=== PATIENT | male | born 1980 | race Asian ===

== ENCOUNTER 2018-03-13 09:43 | Emergency (ER) | payer MEDICAID, OTHER ==
[~2018-03-13] VITALS: Ht 175.3 cm; Wt 65.9 kg
[2018-03-13 09:49] VITALS: BP 144/87
[2018-03-13] MEDS ORDERED: PERTUSS(ACELL),DIPH,TET VAC/PF 0.5 ML VIAL IM ONE (10:15)
== END 2018-03-13 10:48 | disposition left against medical advice (07) ==
LOC: EMS 09:43
DX: S01.81XA Laceration without foreign body of other part of head, initial encounter (principal); Z90.89 Acquired absence of other organs; W17.89XA Other fall from one level to another, initial encounter; Y93.39 Activity, other involving climbing, rappelling and jumping off; Y92.89 Other specified places as the place of occurrence of the external cause; Y99.8 Other external cause status
CPT/HCPCS: 99281

== ENCOUNTER 2020-11-29 12:53 | Emergency (ER) | payer MEDICAID, OTHER ==
[~2020-11-29] VITALS: Ht 167.6 cm; Wt 70.5 kg
[2020-11-29 14:19] LABS: COVID AG,FIA SOURCE NASOPHARYNGEAL
[2020-11-29 14:24] LABS: BASOPHILS % (AUTO) 0.4 % (0.0-2.0); EOSINOPHILS % (AUTO) 2.7 % (1.0-6.0); HEMATOCRIT 40.7 % (41-53); HEMOGLOBIN 13.2 g/dL (13.5-17.5); LYMPHOCYTES # (AUTO) 1.3 K/uL (1.0-4.8); LYMPHOCYTES % (AUTO) 17.4 % (22.0-44.0); MEAN CORPUSCULAR HEMOGLOBIN 29.5 pg (26.0-34.0); MEAN CORPUSCULAR HGB CONC 32.5 G/dL (31.0-37.0); MEAN CORPUSCULAR VOLUME 91 fL (80-100); MONOCYTES # (AUTO) 0.7 K/uL (0.1-1.0); NEUTROPHILS # (AUTO) 5.3 K/uL (1.8-7.7); NEUTROPHILS % (AUTO) 70.5 % (40.0-70.0); PLATELET COUNT (AUTO) 271 K/uL (150-450); RED BLOOD CELL COUNT(AUTO) 4.48 MIL/uL (4.50-5.90); RED CELL DISTRIBUTION WIDTH 13.7 % (11.5-14.5)
[2020-11-29 14:32] LABS: ANION GAP 2 mmol/L (8-16); CALCIUM, TOTAL 8.6 mg/dL (8.8-10.5); CARBON DIOXIDE 29 mmol/L (22-29); CHLORIDE 101 mmol/L (98-107); CREATININE 0.83 mg/dL (0.60-1.30); GLOMERULAR FILTR. RATE CALC > 60 mL/min (>60); GLUCOSE,RANDOM 103 mg/dL (70-110); POTASSIUM 3.8 mmol/L (3.5-5.1); SODIUM SERUM 132 mmol/L (136-145); UREA NITROGEN, BLOOD 20 mg/dL (7-18)
[2020-11-29 14:39] LABS: ALANINE AMINOTRANSFERASE 41 U/L (12-78); ALBUMIN 3.3 g/dL (3.4-5.0); ALKALINE PHOSPHATASE 147 U/L (46-116); ASPARTATE AMINOTRANSFERASE 28 U/L (15-37); BILIRUBIN,TOTAL 0.2 mg/dL (0.1-1.0); TOTAL PROTEIN, SERUM 7.4 g/dL (6.4-8.2)
[2020-11-29 16:21] VITALS: BP 117/80
== END 2020-11-29 16:46 | disposition home or self-care (01) ==
LOC: EMS 14:06
DX: F19.959 Other psychoactive substance use, unspecified with psychoactive substance-induced psychotic disorder, unspecified (principal); Z20.822 Contact with and (suspected) exposure to COVID-19
CPT/HCPCS: 36415; 80053; 85025; 87426; 99285; G0480

== ENCOUNTER 2020-12-10 21:03 | Emergency (ER) | payer MEDICAID ==
[~2020-12-10] VITALS: Ht 170.2 cm; Wt 63.0 kg
[2020-12-11 04:20] LABS: BASOPHILS % (AUTO) 0.4 % (0.0-2.0); EOSINOPHILS % (AUTO) 6.7 % (1.0-6.0); HEMATOCRIT 38.8 % (41-53); HEMOGLOBIN 12.9 g/dL (13.5-17.5); LYMPHOCYTES # (AUTO) 1.8 K/uL (1.0-4.8); LYMPHOCYTES % (AUTO) 16.3 % (22.0-44.0); MEAN CORPUSCULAR HEMOGLOBIN 29.6 pg (26.0-34.0); MEAN CORPUSCULAR HGB CONC 33.2 G/dL (31.0-37.0); MEAN CORPUSCULAR VOLUME 89 fL (80-100); MONOCYTES # (AUTO) 1.2 K/uL (0.1-1.0); MONOCYTES % (AUTO) 11.6 % (2.0-9.0); PLATELET COUNT (AUTO) 294 K/uL (150-450); RED BLOOD CELL COUNT(AUTO) 4.35 MIL/uL (4.50-5.90); RED CELL DISTRIBUTION WIDTH 13.2 % (11.5-14.5)
[2020-12-11 04:30] LABS: ANION GAP 9 mmol/L (8-16); CALCIUM, TOTAL 8.2 mg/dL (8.8-10.5); CARBON DIOXIDE 27 mmol/L (22-29); CHLORIDE 101 mmol/L (98-107); CREATININE 0.77 mg/dL (0.60-1.30); GLOMERULAR FILTR. RATE CALC > 60 mL/min (>60); GLUCOSE,RANDOM 93 mg/dL (70-110); POTASSIUM 3.2 mmol/L (3.5-5.1); SODIUM SERUM 137 mmol/L (136-145); UREA NITROGEN, BLOOD 9 mg/dL (7-18)
[2020-12-11 04:35] LABS: ALANINE AMINOTRANSFERASE 21 U/L (12-78); ALBUMIN 2.8 g/dL (3.4-5.0); ALKALINE PHOSPHATASE 124 U/L (46-116); ASPARTATE AMINOTRANSFERASE 16 U/L (15-37); BILIRUBIN,TOTAL 0.4 mg/dL (0.1-1.0); TOTAL PROTEIN, SERUM 7.2 g/dL (6.4-8.2)
[2020-12-11 05:03] LABS: COVID AG,FIA SOURCE NASOPHARYNGEAL
[2020-12-11] MEDS ORDERED: PIPERACILLIN/TAZO 3.375 GM/D5W 50 ML IV ONE (05:30)
[2020-12-11] MEDS ORDERED: POTASSIUM CHLORIDE 10% 40 MEQ/30 ML LIQUID UDCUP PO ONE (05:30)
[2020-12-11] MEDS ORDERED: KETOROLAC TROMETHAMINE 30 MG/ML VIAL IVP ONE (05:30)
[2020-12-11] MEDS ORDERED: POTASSIUM CHL 20 MEQ/D5-0.45NS 1,000 ML IV ONE (05:45)
[2020-12-11 06:13] VITALS: BP 123/79
== END 2020-12-11 08:40 | disposition short-term general hospital (02) ==
LOC: EMS 21:05
DX: T63.441A Toxic effect of venom of bees, accidental (unintentional), initial encounter (principal); S02.652A Fracture of angle of left mandible, initial encounter for closed fracture; F15.10 Other stimulant abuse, uncomplicated; Z20.822 Contact with and (suspected) exposure to COVID-19; Z59.0 Homelessness; Y04.0XXA Assault by unarmed brawl or fight, initial encounter; Y93.89 Activity, other specified; Y92.89 Other specified places as the place of occurrence of the external cause; Y99.8 Other external cause status
CPT/HCPCS: 36415; 70100; 80053; 85025; 87426; 96365; 96366; 96368; 96375; 99285; G0480; J1885; J2543; J3480; 96372; 96374

== ENCOUNTER 2020-12-29 19:36 | Emergency (ER) | payer MEDICAID | END 2020-12-29 19:45 | disposition left against medical advice (07) | LOC: EMS 19:38 | DX: H57.12 Ocular pain, left eye (principal); Z53.21 Procedure and treatment not carried out due to patient leaving prior to being seen by health care provider ==

== ENCOUNTER 2023-08-22 02:02 | Inpatient (IN) | payer MEDICAID ==
[~2023-08-22] VITALS: Ht 170.2 cm; Wt 68.0 kg
[2023-08-22 03:08] LABS: BASOPHILS % (AUTO) 0.1 % (0.0-2.0); EOSINOPHILS % (AUTO) 0.8 % (1.0-6.0); HEMATOCRIT 38.9 % (41-53); HEMOGLOBIN 13.1 g/dL (13.5-17.5); LYMPHOCYTES # (AUTO) 1.7 K/uL (1.0-4.8); LYMPHOCYTES % (AUTO) 8.6 % (22.0-44.0); MEAN CORPUSCULAR HEMOGLOBIN 30.1 pg (26.0-34.0); MEAN CORPUSCULAR HGB CONC 33.6 G/dL (31.0-37.0); MEAN CORPUSCULAR VOLUME 90 fL (80-100); MONOCYTES # (AUTO) 2.9 K/uL (0.1-1.0); MONOCYTES % (AUTO) 14.8 % (2.0-9.0); NEUTROPHILS # (AUTO) 14.6 K/uL (1.8-7.7); NEUTROPHILS % (AUTO) 75.7 % (40.0-70.0); PLATELET COUNT (AUTO) 351 K/uL (150-450); RED BLOOD CELL COUNT(AUTO) 4.33 MIL/uL (4.50-5.90); RED CELL DISTRIBUTION WIDTH 13.7 % (11.5-14.5); WHITE BLOOD COUNT (AUTO) 19.3 K/uL (4.5-11.0)
[2023-08-22] MEDS: SODIUM CHLORIDE 0.9% 1,950 ML IV ONE (03:09)
[2023-08-22] MEDS ORDERED: SODIUM CHLORIDE 0.9% 100 ML ONE (03:14)
[2023-08-22] MEDS ORDERED: IOHEXOL 350 MG/ML 100 ML VIAL ONE (03:14)
[2023-08-22 03:18] LABS: ANION GAP 6 mmol/L (8-16); CARBON DIOXIDE 28 mmol/L (22-29); CREATININE 0.97 mg/dL (0.60-1.30); GLUCOSE,RANDOM 140 mg/dL (70-110); UREA NITROGEN, BLOOD 21 mg/dL (7-18)
[2023-08-22 03:19] LABS: ALANINE AMINOTRANSFERASE 21 U/L (12-78); ALBUMIN 2.3 g/dL (3.4-5.0); ALKALINE PHOSPHATASE 143 U/L (46-116); ASPARTATE AMINOTRANSFERASE 27 U/L (15-37); BILIRUBIN,TOTAL 0.4 mg/dL (0.1-1.0); CALCIUM, TOTAL 8.7 mg/dL (8.8-10.5); CHLORIDE 91 mmol/L (98-107); GLOMERULAR FILTR. RATE CALC > 60 mL/min (>60); POTASSIUM 3.7 mmol/L (3.5-5.1); SODIUM SERUM 125 mmol/L (136-145); TOTAL PROTEIN, SERUM 7.5 g/dL (6.4-8.2)
[2023-08-22 03:21] LABS: LACTIC ACID 1.5 mmol/L (0.4-2.0)
[2023-08-22] MEDS: CEFTAROLINE 600 MG/D5W 250 ML IV ONE (03:56)
[2023-08-22 05:30] LABS: APPEARANCE,URINE CLEAR (CLEAR); BILIRUBIN,URINE NEGATIVE (NEGATIVE); COLOR,URINE YELLOW (YELLOW); GLUCOSE, URINE (UA) NEGATIVE (NEGATIVE); KETONES,URINE NEGATIVE (NEGATIVE); LEUKOCYTE ESTERASE ,URINE NEGATIVE (NEGATIVE); NITRATE,URINE NEGATIVE (NEGATIVE); OCCULT BLOOD,URINE TRACE (NEGATIVE); PH,URINE 5.5 (5.0-8.0); PH,URINE DRUG SCREEN 5.5 (5.0-8.0); PROTEIN,URINE 30-70 mg/dL (NEGATIVE); SPECIFIC GRAVITIY, URINE 1.021 (1.003-1.030)
[2023-08-22 05:36] LABS: AMPHET/METH SCREEN,URINE POSITIVE (NEGATIVE); BACTERIA,URINE None Seen /HPF (None Seen); BARBITURATE SCREEN, URINE NEGATIVE (NEGATIVE); BENZODIAZEPINES SCREEN,URINE NEGATIVE (NEGATIVE); CANNABINOID SCREEN,URINE POSITIVE (NEGATIVE); COCAINE SCREEN,URINE NEGATIVE (NEGATIVE); METHADONE SCREEN, URINE NEGATIVE (NEGATIVE); OPIATE SCREEN,URINE NEGATIVE (NEGATIVE); PHENCYCLIDINE SCREEN,URINE NEGATIVE (NEGATIVE); RBC,URINE 0-2 /HPF (0-2); SQUAMOUS EPITHELIAL CELL,UR Few /LPF (None Seen); WBC,URINE None Seen /HPF (0-5)
[2023-08-22 05:37] LABS: ALCOHOL, URINE DRUG SCREEN NEGATIVE (NEGATIVE)
[2023-08-22 05:59] LABS: C-REACTIVE PROTEIN QUANT 34.74 mg/dL (0.00-0.30)
[2023-08-22] MEDS ORDERED: SODIUM CHLORIDE 0.9% 1,000 ML ONE (11:02)
[2023-08-22 12:10] VITALS: BP 104/70; PULSE 90; RESP 18; TEMP 97
[2023-08-22 12:20] LABS: COVID AG,FIA SOURCE NASAL SWAB
[2023-08-22] MEDS: SODIUM CHLORIDE 0.9% 1,000 ML IV ONE (12:48)
[2023-08-22] MEDS: ETHYL ALCOHOL 62% ANTISEPTIC NASAL SANITIZER 0.6 ML AMPUL NASAL ONE (12:48)
[2023-08-22 12:50] LABS: SARS-COV2 (COVID) ANTIGEN,FIA Negative (Negative)
[2023-08-22] MEDS: CHLORHEXIDINE GLUCONATE 2% TOWELETTE [2'S/6'S] TP ONE (13:14)
[2023-08-22] MEDS ORDERED: HYDROCODONE/ACETAMINOPHEN 5-325 MG TABLET PO PRN (14:45)
[2023-08-22] MEDS ORDERED: BISACODYL 10 MG RECTAL RECTAL SUPPOSITORY PR PRN (14:45)
[2023-08-22] MEDS ORDERED: ONDANSETRON HCL 4 MG/2 ML VIAL IVP PRN (14:45)
[2023-08-22] MEDS ORDERED: MORPHINE SULFATE 2 MG/ML SYRINGE IVP PRN (14:45)
[2023-08-22] MEDS ORDERED: MAGNESIUM HYDROXIDE SUSPENSION 30 ML UDCUP PO PRN (14:45)
[2023-08-22] MEDS: 0.9% SODIUM CHLORIDE 1000 ML IRRIG SOLUTION BOTTLE IRRIG ONE (15:15)
[2023-08-22] MEDS ORDERED: ACETAMINOPHEN 1000 MG/ISO-OSM 100 ML IV ONE (15:41)
[2023-08-22] MEDS ORDERED: HEPARIN SODIUM,PORCINE 5,000 UNITS/ML VIAL SQ SCH (16:00)
[2023-08-22] MEDS: ACETAMINOPHEN 1000 MG/ISO-OSM 100 ML IV ONE (16:06)
[2023-08-22] MEDS: KETOROLAC TROMETHAMINE 30 MG/ML VIAL IVP ONE (16:06)
[2023-08-22] MEDS: HYDROmorphone HCL 2 MG/ML SYRINGE IVP ONE (16:14)
[2023-08-22] MEDS: VANCOMYCIN HCL 1.5 GM in DEXTROSE 5%-WATER 250 ML IV ONE (16:50)
[2023-08-22 17:10] VITALS: BP 121/80; PULSE 94; RESP 19; TEMP 98.7
[2023-08-22] MEDS: DOCUSATE SODIUM 100 MG CAPSULE PO SCH (20:05)
[2023-08-22] MEDS: FAMOTIDINE 20 MG TABLET PO SCH (20:05)
[2023-08-22 20:18] VITALS: BP 112/65; PULSE 88; RESP 18; TEMP 98.1
[2023-08-22] MEDS: VANCOMYCIN HCL 750 MG in DEXTROSE 5%-WATER 250 ML IV SCH (23:04)
[2023-08-23 03:26] VITALS: BP 126/64; PULSE 73; RESP 20; TEMP 98
[2023-08-23 04:08] VITALS: BP 116/71; PULSE 78; RESP 18; TEMP 97.6
[2023-08-23] MEDS ORDERED: CeFAZolin SODIUM 1 GM VIAL IVP ONE (06:51)
[2023-08-23] MEDS ORDERED: ONDANSETRON HCL 4 MG/2 ML VIAL IVP ONE (06:52)
[2023-08-23] MEDS ORDERED: LIDOCAINE/PF 2% 5 ML VIAL IM ONE (06:52)
[2023-08-23] MEDS ORDERED: PROPOFOL 1% 20 ML VIAL IVP ONE (06:53)
[2023-08-23] MEDS ORDERED: ROCURONIUM BROMIDE 10 MG/ML 5 ML VIAL IVP ONE (06:53)
[2023-08-23] MEDS ORDERED: SUGAMMADEX SODIUM 200 MG/2 ML VIAL IVP ONE (06:54)
[2023-08-23 08:00] VITALS: BP 128/77; PULSE 81; RESP 18; TEMP 98.2
[2023-08-23] MEDS: PANTOPRAZOLE SODIUM 40 MG DR TABLET PO SCH (08:30)
[2023-08-23 09:23] LABS: BASOPHILS % (AUTO) 0.1 % (0.0-2.0); EOSINOPHILS % (AUTO) 0.1 % (1.0-6.0); HEMATOCRIT 37.2 % (41-53); HEMOGLOBIN 12.4 g/dL (13.5-17.5); LYMPHOCYTES # (AUTO) 1.2 K/uL (1.0-4.8); LYMPHOCYTES % (AUTO) 12.5 % (22.0-44.0); MEAN CORPUSCULAR HEMOGLOBIN 29.9 pg (26.0-34.0); MEAN CORPUSCULAR HGB CONC 33.2 G/dL (31.0-37.0); MEAN CORPUSCULAR VOLUME 90 fL (80-100); MONOCYTES # (AUTO) 0.6 K/uL (0.1-1.0); MONOCYTES % (AUTO) 6.3 % (2.0-9.0); PLATELET COUNT (AUTO) 386 K/uL (150-450); RED BLOOD CELL COUNT(AUTO) 4.13 MIL/uL (4.50-5.90); RED CELL DISTRIBUTION WIDTH 13.7 % (11.5-14.5); WHITE BLOOD COUNT (AUTO) 9.9 K/uL (4.5-11.0)
[2023-08-23 09:31] LABS: ANION GAP 5 mmol/L (8-16); CALCIUM, TOTAL 8.7 mg/dL (8.8-10.5); CARBON DIOXIDE 31 mmol/L (22-29); CHLORIDE 99 mmol/L (98-107); CREATININE 0.81 mg/dL (0.60-1.30); GLOMERULAR FILTR. RATE CALC > 60 mL/min (>60); GLUCOSE,RANDOM 164 mg/dL (70-110); POTASSIUM 3.7 mmol/L (3.5-5.1); SODIUM SERUM 135 mmol/L (136-145); UREA NITROGEN, BLOOD 17 mg/dL (7-18)
[2023-08-23 15:48] VITALS: BP 133/85; PULSE 92; RESP 20; TEMP 97.5
[2023-08-23] MEDS: HYDROCODONE/ACETAMINOPHEN 5-325 MG TABLET PO PRN (17:54)
[2023-08-23 19:16] VITALS: BP 129/78; PULSE 98; RESP 18; TEMP 98.7
[2023-08-24 04:12] VITALS: BP 141/94; PULSE 87; RESP 18; TEMP 98.2
[2023-08-24 07:02] LABS: HEMOGLOBIN 12.1 g/dL (13.5-17.5); MEAN CORPUSCULAR HEMOGLOBIN 30.3 pg (26.0-34.0); MEAN CORPUSCULAR HGB CONC 33.6 G/dL (31.0-37.0); MEAN CORPUSCULAR VOLUME 91 fL (80-100); PLATELET COUNT (AUTO) 413 K/uL (150-450); RED BLOOD CELL COUNT(AUTO) 3.98 MIL/uL (4.50-5.90); RED CELL DISTRIBUTION WIDTH 13.8 % (11.5-14.5); WHITE BLOOD COUNT (AUTO) 10.4 K/uL (4.5-11.0)
[2023-08-24 07:14] LABS: ANION GAP 7 mmol/L (8-16); CARBON DIOXIDE 28 mmol/L (22-29); CHLORIDE 99 mmol/L (98-107); CREATININE 0.73 mg/dL (0.60-1.30); GLOMERULAR FILTR. RATE CALC > 60 mL/min (>60); GLUCOSE,RANDOM 93 mg/dL (70-110); POTASSIUM 3.9 mmol/L (3.5-5.1); SODIUM SERUM 134 mmol/L (136-145); UREA NITROGEN, BLOOD 15 mg/dL (7-18)
[2023-08-24 07:48] VITALS: BP 137/92; PULSE 83; RESP 18; TEMP 97.8
[2023-08-24 08:46] LABS: BAND NEUTROPHILS % (MANUAL) 6 % (0-5); LYMPHOCYTES % (MANUAL) 32 % (22-44); MONOCYTES % (MANUAL) 3 % (2-9); MYELOCYTES % 2 % (0-0); RBC MORPHOLOGY COMMENT NORMAL RBC MORPH; SEGMENTED NEUTROPHILS % 57 % (40-70); TOTAL CELLS COUNTED 100
[2023-08-24 15:12] VITALS: BP 129/84; PULSE 91; RESP 18; TEMP 97.9
[2023-08-24 19:22] VITALS: BP 142/83; PULSE 99; RESP 20; TEMP 98
[2023-08-25 04:22] VITALS: BP 127/89; PULSE 91; RESP 18; TEMP 98.3
[2023-08-25 08:05] LABS: HEMATOCRIT 38.6 % (41-53); HEMOGLOBIN 13.2 g/dL (13.5-17.5); MEAN CORPUSCULAR HEMOGLOBIN 30.5 pg (26.0-34.0); MEAN CORPUSCULAR HGB CONC 34.2 G/dL (31.0-37.0); MEAN CORPUSCULAR VOLUME 89 fL (80-100); PLATELET COUNT (AUTO) 493 K/uL (150-450); RED BLOOD CELL COUNT(AUTO) 4.32 MIL/uL (4.50-5.90); RED CELL DISTRIBUTION WIDTH 13.3 % (11.5-14.5); WHITE BLOOD COUNT (AUTO) 9.9 K/uL (4.5-11.0)
[2023-08-25 08:15] VITALS: BP 134/86; PULSE 83; RESP 18; TEMP 97.5
[2023-08-25 08:17] LABS: ANION GAP 6 mmol/L (8-16); CALCIUM, TOTAL 8.3 mg/dL (8.8-10.5); CARBON DIOXIDE 30 mmol/L (22-29); CHLORIDE 96 mmol/L (98-107); CREATININE 0.76 mg/dL (0.60-1.30); GLOMERULAR FILTR. RATE CALC > 60 mL/min (>60); GLUCOSE,RANDOM 97 mg/dL (70-110); POTASSIUM 4.1 mmol/L (3.5-5.1); SODIUM SERUM 132 mmol/L (136-145); UREA NITROGEN, BLOOD 14 mg/dL (7-18)
[2023-08-25 08:52] LABS: BAND NEUTROPHILS % (MANUAL) 3 % (0-5); LYMPHOCYTES % (MANUAL) 36 % (22-44); METAMYELOCYTES % 2 % (0-0); MONOCYTES % (MANUAL) 2 % (2-9); MYELOCYTES % 3 % (0-0); RBC MORPHOLOGY COMMENT NORMAL RBC MORPH; SEGMENTED NEUTROPHILS % 54 % (40-70); TOTAL CELLS COUNTED 100
[2023-08-25 16:07] VITALS: BP 153/99; PULSE 83; RESP 18; TEMP 97.9
[2023-08-25 19:30] VITALS: BP 135/81; PULSE 86; RESP 20; TEMP 97.8
[2023-08-25] MEDS ORDERED: SODIUM CHLORIDE 0.9% 500 ML IV ONE (20:03)
[2023-08-25] MEDS: ZOLPIDEM TARTRATE 5 MG TABLET PO PRN (20:13)
[2023-08-26 04:36] VITALS: BP 131/86; PULSE 90; RESP 18; TEMP 98.1
[2023-08-26 07:42] LABS: ANION GAP 6 mmol/L (8-16); CALCIUM, TOTAL 8.3 mg/dL (8.8-10.5); CARBON DIOXIDE 29 mmol/L (22-29); CHLORIDE 98 mmol/L (98-107); CREATININE 0.81 mg/dL (0.60-1.30); GLOMERULAR FILTR. RATE CALC > 60 mL/min (>60); GLUCOSE,RANDOM 98 mg/dL (70-110); POTASSIUM 4.5 mmol/L (3.5-5.1); SODIUM SERUM 133 mmol/L (136-145); UREA NITROGEN, BLOOD 16 mg/dL (7-18); VANCOMYCIN,RANDOM 14.8 mcg/mL (25.0-50.0)
[2023-08-26 08:00] VITALS: BP 128/81; PULSE 94; RESP 18; TEMP 98.5
[2023-08-26 16:54] VITALS: BP 117/82; PULSE 107; RESP 18; TEMP 98.9
[2023-08-26 19:15] VITALS: BP 121/67; PULSE 107; RESP 19; TEMP 98.5
[2023-08-26] MEDS: MORPHINE SULFATE 4 MG/ML SYRINGE IVP PRN (23:23)
[2023-08-27 04:33] VITALS: BP 112/82; PULSE 87; RESP 18; TEMP 98.6
[2023-08-27 07:27] LABS: ANION GAP 5 mmol/L (8-16); CALCIUM, TOTAL 8.5 mg/dL (8.8-10.5); CARBON DIOXIDE 31 mmol/L (22-29); CHLORIDE 97 mmol/L (98-107); CREATININE 0.88 mg/dL (0.60-1.30); GLOMERULAR FILTR. RATE CALC > 60 mL/min (>60); GLUCOSE,RANDOM 97 mg/dL (70-110); POTASSIUM 4.6 mmol/L (3.5-5.1); SODIUM SERUM 133 mmol/L (136-145); UREA NITROGEN, BLOOD 19 mg/dL (7-18)
[2023-08-27] MEDS: ASPIRIN 81 MG CHEWABLE TABLET PO SCH (08:03)
[2023-08-27 09:01] VITALS: BP 127/76; PULSE 98; RESP 20; TEMP 98.2
[2023-08-27 20:13] VITALS: BP_SYST 132; BP_SYST 147; BP_DIAS 68; BP_DIAS 74; PULSE 110; PULSE 84; RESP 20; TEMP 97.8; TEMP 98.6
[2023-08-28 04:45] VITALS: BP 117/81; PULSE 79; RESP 20; TEMP 98.2
[2023-08-28 07:35] LABS: ANION GAP 5 mmol/L (8-16); CALCIUM, TOTAL 8.4 mg/dL (8.8-10.5); CARBON DIOXIDE 30 mmol/L (22-29); CHLORIDE 98 mmol/L (98-107); CREATININE 0.79 mg/dL (0.60-1.30); GLOMERULAR FILTR. RATE CALC > 60 mL/min (>60); GLUCOSE,RANDOM 97 mg/dL (70-110); POTASSIUM 4.3 mmol/L (3.5-5.1); SODIUM SERUM 133 mmol/L (136-145); UREA NITROGEN, BLOOD 19 mg/dL (7-18)
[2023-08-28 08:28] VITALS: BP 121/80; PULSE 80; RESP 20; TEMP 98.1
[2023-08-28 15:40] VITALS: BP 121/79; PULSE 86; RESP 20; TEMP 97.5
[2023-08-28] MEDS: HYDROmorphone HCL 2 MG/ML SYRINGE IVP PRN (15:58)
[2023-08-28] MEDS ORDERED: SODIUM CHLORIDE 0.9% IRRIG BTL 1,000 ML IRRIG ONE (16:56)
[2023-08-28 19:29] VITALS: BP 135/89; PULSE 96; RESP 19; TEMP 98.3
[2023-08-29 05:54] VITALS: BP 120/79; PULSE 83; RESP 18; TEMP 98.3
[2023-08-29 06:23] LABS: ANION GAP 7 mmol/L (8-16); CALCIUM, TOTAL 8.4 mg/dL (8.8-10.5); CARBON DIOXIDE 29 mmol/L (22-29); CHLORIDE 97 mmol/L (98-107); CREATININE 0.77 mg/dL (0.60-1.30); GLOMERULAR FILTR. RATE CALC > 60 mL/min (>60); GLUCOSE,RANDOM 96 mg/dL (70-110); POTASSIUM 4.2 mmol/L (3.5-5.1); SODIUM SERUM 133 mmol/L (136-145); UREA NITROGEN, BLOOD 18 mg/dL (7-18); VANCOMYCIN,RANDOM 18.6 mcg/mL (25.0-50.0)
[2023-08-29 20:19] VITALS: BP 111/66; PULSE 94; RESP 19; TEMP 98.5
[2023-08-30 04:13] VITALS: BP 119/78; PULSE 84; RESP 18; TEMP 98
[2023-08-30 07:44] LABS: ANION GAP 5 mmol/L (8-16); CALCIUM, TOTAL 8.4 mg/dL (8.8-10.5); CARBON DIOXIDE 31 mmol/L (22-29); CHLORIDE 98 mmol/L (98-107); CREATININE 0.72 mg/dL (0.60-1.30); GLOMERULAR FILTR. RATE CALC > 60 mL/min (>60); GLUCOSE,RANDOM 94 mg/dL (70-110); POTASSIUM 4.2 mmol/L (3.5-5.1); SODIUM SERUM 134 mmol/L (136-145); UREA NITROGEN, BLOOD 17 mg/dL (7-18)
[2023-08-30 08:00] VITALS: BP 111/58; PULSE 84; RESP 18; TEMP 98.4
[2023-08-30 16:00] VITALS: BP 124/76; PULSE 92; RESP 18; TEMP 98.2
[2023-08-30 19:48] VITALS: BP 118/64; PULSE 94; RESP 18; TEMP 98.1
[2023-08-31 05:16] VITALS: BP 130/88; PULSE 84; RESP 18; TEMP 97.3
[2023-08-31 06:51] LABS: BASOPHILS % (AUTO) 0.1 % (0.0-2.0); EOSINOPHILS % (AUTO) 3.5 % (1.0-6.0); HEMOGLOBIN 12.2 g/dL (13.5-17.5); LYMPHOCYTES # (AUTO) 2.2 K/uL (1.0-4.8); LYMPHOCYTES % (AUTO) 18.8 % (22.0-44.0); MEAN CORPUSCULAR HEMOGLOBIN 30.5 pg (26.0-34.0); MEAN CORPUSCULAR HGB CONC 33.9 G/dL (31.0-37.0); MEAN CORPUSCULAR VOLUME 90 fL (80-100); MONOCYTES # (AUTO) 0.8 K/uL (0.1-1.0); MONOCYTES % (AUTO) 7.1 % (2.0-9.0); NEUTROPHILS # (AUTO) 8.2 K/uL (1.8-7.7); NEUTROPHILS % (AUTO) 70.5 % (40.0-70.0); PLATELET COUNT (AUTO) 443 K/uL (150-450); RED BLOOD CELL COUNT(AUTO) 3.99 MIL/uL (4.50-5.90); RED CELL DISTRIBUTION WIDTH 13.8 % (11.5-14.5); WHITE BLOOD COUNT (AUTO) 11.6 K/uL (4.5-11.0)
[2023-08-31 06:57] LABS: ANION GAP 5 mmol/L (8-16); CALCIUM, TOTAL 8.6 mg/dL (8.8-10.5); CARBON DIOXIDE 31 mmol/L (22-29); CHLORIDE 97 mmol/L (98-107); CREATININE 0.76 mg/dL (0.60-1.30); GLOMERULAR FILTR. RATE CALC > 60 mL/min (>60); GLUCOSE,RANDOM 92 mg/dL (70-110); POTASSIUM 4.2 mmol/L (3.5-5.1); SODIUM SERUM 133 mmol/L (136-145); UREA NITROGEN, BLOOD 14 mg/dL (7-18)
[2023-08-31 07:37] VITALS: BP 119/62; PULSE 96; RESP 18; TEMP 98.1
[2023-08-31 16:00] VITALS: BP 123/83; PULSE 98; RESP 18; TEMP 97.8
[2023-08-31 19:39] VITALS: BP 125/74; PULSE 106; RESP 18; TEMP 97.9
[2023-09-01 02:46] VITALS: BP 117/69; PULSE 94; RESP 18; TEMP 98.3
[2023-09-01 07:11] LABS: BASOPHILS % (AUTO) 0.1 % (0.0-2.0); EOSINOPHILS % (AUTO) 3.8 % (1.0-6.0); HEMATOCRIT 34.1 % (41-53); HEMOGLOBIN 11.6 g/dL (13.5-17.5); LYMPHOCYTES % (AUTO) 17.2 % (22.0-44.0); MEAN CORPUSCULAR HEMOGLOBIN 30.4 pg (26.0-34.0); MEAN CORPUSCULAR VOLUME 89 fL (80-100); MONOCYTES # (AUTO) 0.9 K/uL (0.1-1.0); MONOCYTES % (AUTO) 7.4 % (2.0-9.0); NEUTROPHILS # (AUTO) 8.3 K/uL (1.8-7.7); NEUTROPHILS % (AUTO) 71.5 % (40.0-70.0); PLATELET COUNT (AUTO) 401 K/uL (150-450); RED BLOOD CELL COUNT(AUTO) 3.81 MIL/uL (4.50-5.90); RED CELL DISTRIBUTION WIDTH 13.6 % (11.5-14.5); WHITE BLOOD COUNT (AUTO) 11.5 K/uL (4.5-11.0)
[2023-09-01 07:22] LABS: ANION GAP 4 mmol/L (8-16); CALCIUM, TOTAL 8.3 mg/dL (8.8-10.5); CARBON DIOXIDE 32 mmol/L (22-29); CHLORIDE 99 mmol/L (98-107); CREATININE 0.72 mg/dL (0.60-1.30); GLOMERULAR FILTR. RATE CALC > 60 mL/min (>60); GLUCOSE,RANDOM 97 mg/dL (70-110); POTASSIUM 4.2 mmol/L (3.5-5.1); SODIUM SERUM 135 mmol/L (136-145); UREA NITROGEN, BLOOD 18 mg/dL (7-18)
[2023-09-01 09:08] VITALS: BP 119/72; PULSE 91; RESP 20; TEMP 98.8
[2023-09-01] MEDS: VANCOMYCIN 750 MG/WATER(PEG) 150 ML IV SCH (16:14)
[2023-09-01 16:23] VITALS: BP 124/50; PULSE 92; RESP 20; TEMP 98.7
[2023-09-01 20:01] VITALS: BP 112/53; PULSE 94; RESP 19; TEMP 98.4
[2023-09-02 04:26] VITALS: BP 115/68; PULSE 93; RESP 18; TEMP 98.8
[2023-09-02 07:28] VITALS: BP 118/68; PULSE 91; RESP 18; TEMP 98.7
[2023-09-02 07:50] LABS: BASOPHILS % (AUTO) 0.2 % (0.0-2.0); EOSINOPHILS % (AUTO) 4.7 % (1.0-6.0); HEMOGLOBIN 11.9 g/dL (13.5-17.5); LYMPHOCYTES # (AUTO) 1.4 K/uL (1.0-4.8); LYMPHOCYTES % (AUTO) 14.5 % (22.0-44.0); MEAN CORPUSCULAR HEMOGLOBIN 30.6 pg (26.0-34.0); MEAN CORPUSCULAR VOLUME 90 fL (80-100); MONOCYTES # (AUTO) 0.6 K/uL (0.1-1.0); NEUTROPHILS # (AUTO) 7.4 K/uL (1.8-7.7); NEUTROPHILS % (AUTO) 74.6 % (40.0-70.0); PLATELET COUNT (AUTO) 402 K/uL (150-450); RED CELL DISTRIBUTION WIDTH 13.8 % (11.5-14.5); WHITE BLOOD COUNT (AUTO) 9.9 K/uL (4.5-11.0)
[2023-09-02 07:57] LABS: ANION GAP 7 mmol/L (8-16); CALCIUM, TOTAL 8.5 mg/dL (8.8-10.5); CARBON DIOXIDE 30 mmol/L (22-29); CHLORIDE 99 mmol/L (98-107); CREATININE 0.73 mg/dL (0.60-1.30); GLOMERULAR FILTR. RATE CALC > 60 mL/min (>60); GLUCOSE,RANDOM 94 mg/dL (70-110); POTASSIUM 4.2 mmol/L (3.5-5.1); SODIUM SERUM 136 mmol/L (136-145); UREA NITROGEN, BLOOD 12 mg/dL (7-18)
[2023-09-02 15:54] VITALS: BP 122/72; PULSE 88; RESP 18; TEMP 98.4
[2023-09-02 19:17] VITALS: BP 123/72; PULSE 98; RESP 18; TEMP 98.8
[2023-09-03 04:08] VITALS: BP 122/70; PULSE 85; RESP 18; TEMP 97.8
[2023-09-03 07:17] LABS: BASOPHILS % (AUTO) 0.2 % (0.0-2.0); EOSINOPHILS % (AUTO) 4.7 % (1.0-6.0); HEMATOCRIT 35.5 % (41-53); LYMPHOCYTES # (AUTO) 1.6 K/uL (1.0-4.8); LYMPHOCYTES % (AUTO) 19.3 % (22.0-44.0); MEAN CORPUSCULAR HEMOGLOBIN 30.3 pg (26.0-34.0); MEAN CORPUSCULAR HGB CONC 33.8 G/dL (31.0-37.0); MEAN CORPUSCULAR VOLUME 90 fL (80-100); MONOCYTES # (AUTO) 0.6 K/uL (0.1-1.0); MONOCYTES % (AUTO) 7.8 % (2.0-9.0); NEUTROPHILS # (AUTO) 5.5 K/uL (1.8-7.7); PLATELET COUNT (AUTO) 397 K/uL (150-450); RED BLOOD CELL COUNT(AUTO) 3.96 MIL/uL (4.50-5.90); WHITE BLOOD COUNT (AUTO) 8.1 K/uL (4.5-11.0)
[2023-09-03 07:21] LABS: ANION GAP 6 mmol/L (8-16); CALCIUM, TOTAL 8.4 mg/dL (8.8-10.5); CARBON DIOXIDE 31 mmol/L (22-29); CHLORIDE 100 mmol/L (98-107); CREATININE 0.67 mg/dL (0.60-1.30); GLOMERULAR FILTR. RATE CALC > 60 mL/min (>60); GLUCOSE,RANDOM 90 mg/dL (70-110); POTASSIUM 4.1 mmol/L (3.5-5.1); SODIUM SERUM 137 mmol/L (136-145); UREA NITROGEN, BLOOD 15 mg/dL (7-18)
[2023-09-03 08:09] VITALS: BP 101/68; PULSE 89; RESP 20; TEMP 98.7
[2023-09-03 16:15] VITALS: BP_SYST 120; BP_SYST 220; BP_DIAS 78; PULSE 94; RESP 20; TEMP 98.6
[2023-09-03 19:56] VITALS: BP 122/64; PULSE 101; RESP 18; TEMP 98.1
[2023-09-04 03:35] VITALS: BP 123/73; PULSE 85; RESP 18; TEMP 98.2
[2023-09-04 07:29] VITALS: BP 116/76; PULSE 71; RESP 18; TEMP 98.6
[2023-09-04 07:43] LABS: BASOPHILS % (AUTO) 0.8 % (0.0-2.0); EOSINOPHILS % (AUTO) 7.1 % (1.0-6.0); HEMATOCRIT 34.6 % (41-53); HEMOGLOBIN 11.8 g/dL (13.5-17.5); LYMPHOCYTES # (AUTO) 1.5 K/uL (1.0-4.8); LYMPHOCYTES % (AUTO) 18.7 % (22.0-44.0); MEAN CORPUSCULAR HEMOGLOBIN 30.5 pg (26.0-34.0); MEAN CORPUSCULAR VOLUME 90 fL (80-100); MONOCYTES # (AUTO) 0.7 K/uL (0.1-1.0); MONOCYTES % (AUTO) 8.5 % (2.0-9.0); NEUTROPHILS # (AUTO) 5.2 K/uL (1.8-7.7); NEUTROPHILS % (AUTO) 64.9 % (40.0-70.0); PLATELET COUNT (AUTO) 356 K/uL (150-450); RED BLOOD CELL COUNT(AUTO) 3.85 MIL/uL (4.50-5.90); RED CELL DISTRIBUTION WIDTH 14.2 % (11.5-14.5); WHITE BLOOD COUNT (AUTO) 8.1 K/uL (4.5-11.0)
[2023-09-04 07:56] LABS: ANION GAP 6 mmol/L (8-16); CALCIUM, TOTAL 8.6 mg/dL (8.8-10.5); CARBON DIOXIDE 30 mmol/L (22-29); CHLORIDE 100 mmol/L (98-107); CREATININE 0.69 mg/dL (0.60-1.30); GLOMERULAR FILTR. RATE CALC > 60 mL/min (>60); GLUCOSE,RANDOM 91 mg/dL (70-110); POTASSIUM 4.1 mmol/L (3.5-5.1); SODIUM SERUM 136 mmol/L (136-145); UREA NITROGEN, BLOOD 15 mg/dL (7-18); VANCOMYCIN,RANDOM 16.5 mcg/mL (25.0-50.0)
[2023-09-04 15:31] VITALS: BP 117/72; PULSE 94; RESP 18; TEMP 98.7
[2023-09-04 21:55] VITALS: BP 106/72; PULSE 95; RESP 18; TEMP 98.7
[2023-09-05 05:26] VITALS: BP 102/62; PULSE 80; RESP 18; TEMP 97.6
[2023-09-05 07:26] VITALS: BP 108/64; PULSE 84; RESP 18; TEMP 98.7
[2023-09-05] MEDS ORDERED: SODIUM CHLORIDE 0.9% 500 ML IV ONE (12:09)
[2023-09-05 15:50] VITALS: BP 114/72; PULSE 86; RESP 18; TEMP 98.2
[2023-09-05 20:15] VITALS: BP 109/65; PULSE 89; RESP 18; TEMP 98.3
[2023-09-06 05:44] VITALS: BP_SYST 108; BP_SYST 128; BP_DIAS 73; BP_DIAS 74; PULSE 67; PULSE 73; RESP 18; TEMP 98.2; TEMP 98.5
[2023-09-06 08:56] VITALS: BP 111/68; PULSE 82; RESP 20; TEMP 97.7
[2023-09-06 15:56] VITALS: BP 110/69; PULSE 76; RESP 20; TEMP 97.4
[2023-09-06 20:01] VITALS: BP 118/66; PULSE 90; RESP 17; TEMP 97.2
[2023-09-07 04:10] VITALS: BP 116/71; PULSE 92; RESP 19; TEMP 98
[2023-09-07 07:54] VITALS: BP 119/72; PULSE 81; RESP 18; TEMP 98.1
[2023-09-07 09:41] LABS: ANION GAP 8 mmol/L (8-16); CALCIUM, TOTAL 8.2 mg/dL (8.8-10.5); CARBON DIOXIDE 29 mmol/L (22-29); CHLORIDE 101 mmol/L (98-107); CREATININE 0.81 mg/dL (0.60-1.30); GLOMERULAR FILTR. RATE CALC > 60 mL/min (>60); GLUCOSE,RANDOM 111 mg/dL (70-110); POTASSIUM 3.6 mmol/L (3.5-5.1); SODIUM SERUM 138 mmol/L (136-145); UREA NITROGEN, BLOOD 15 mg/dL (7-18); VANCOMYCIN,RANDOM 11.4 mcg/mL (25.0-50.0)
[2023-09-07 16:28] VITALS: BP 109/69; PULSE 83; RESP 18; TEMP 98.4
[2023-09-07 19:15] VITALS: BP 119/67; PULSE 98; RESP 20; TEMP 97.5
[2023-09-08 04:22] VITALS: BP 114/68; PULSE 78; RESP 20; TEMP 97.9
[2023-09-08 08:03] LABS: ANION GAP 7 mmol/L (8-16); CALCIUM, TOTAL 8.6 mg/dL (8.8-10.5); CARBON DIOXIDE 29 mmol/L (22-29); CHLORIDE 101 mmol/L (98-107); CREATININE 0.69 mg/dL (0.60-1.30); GLOMERULAR FILTR. RATE CALC > 60 mL/min (>60); GLUCOSE,RANDOM 90 mg/dL (70-110); POTASSIUM 4.1 mmol/L (3.5-5.1); SODIUM SERUM 137 mmol/L (136-145); UREA NITROGEN, BLOOD 14 mg/dL (7-18)
[2023-09-08 08:23] VITALS: BP 110/69; PULSE 70; RESP 18; TEMP 98.1
[2023-09-08 19:45] VITALS: BP 105/67; PULSE 75; RESP 20; TEMP 98.6
[2023-09-09 04:58] VITALS: BP 108/67; PULSE 74; RESP 18; TEMP 98.3
[2023-09-09 07:56] VITALS: BP 112/73; PULSE 81; RESP 20; TEMP 98.6
[2023-09-09 08:25] LABS: ANION GAP 6 mmol/L (8-16); CALCIUM, TOTAL 8.8 mg/dL (8.8-10.5); CARBON DIOXIDE 30 mmol/L (22-29); CHLORIDE 102 mmol/L (98-107); CREATININE 0.72 mg/dL (0.60-1.30); GLOMERULAR FILTR. RATE CALC > 60 mL/min (>60); GLUCOSE,RANDOM 92 mg/dL (70-110); POTASSIUM 4.2 mmol/L (3.5-5.1); SODIUM SERUM 138 mmol/L (136-145); UREA NITROGEN, BLOOD 16 mg/dL (7-18)
[2023-09-09 16:03] VITALS: BP 115/75; PULSE 85; RESP 19
[2023-09-09 20:15] VITALS: BP 110/72; PULSE 82; RESP 19; TEMP 98
[2023-09-10 04:23] VITALS: BP 106/71; PULSE 82; RESP 18; TEMP 98
[2023-09-10 07:32] LABS: VANCOMYCIN,RANDOM 16.5 mcg/mL (25.0-50.0)
[2023-09-10 07:46] LABS: ANION GAP 7 mmol/L (8-16); CALCIUM, TOTAL 8.4 mg/dL (8.8-10.5); CARBON DIOXIDE 28 mmol/L (22-29); CHLORIDE 101 mmol/L (98-107); CREATININE 0.71 mg/dL (0.60-1.30); GLOMERULAR FILTR. RATE CALC > 60 mL/min (>60); GLUCOSE,RANDOM 88 mg/dL (70-110); POTASSIUM 4.2 mmol/L (3.5-5.1); SODIUM SERUM 136 mmol/L (136-145); UREA NITROGEN, BLOOD 16 mg/dL (7-18)
[2023-09-10 08:17] VITALS: BP 110/66; PULSE 77; RESP 20; TEMP 97.7
[2023-09-10 15:41] VITALS: BP 104/65; PULSE 84; RESP 20; TEMP 97.4
[2023-09-10] MEDS ORDERED: KETO10TA2 PO (17:24)
[2023-09-10 20:59] VITALS: BP 100/63; PULSE 85; RESP 19; TEMP 98.2
[2023-09-10] MEDS: HEPARIN SODIUM,PORCINE 5,000 UNITS/ML VIAL SQ SCH (23:55)
[2023-09-11 05:19] VITALS: BP 103/65; PULSE 58; RESP 20; TEMP 98.6
[2023-09-11 05:29] VITALS: BP 110/64; PULSE 81; RESP 20; TEMP 98
[2023-09-11 08:16] VITALS: BP 108/4; PULSE 89; RESP 20; TEMP 98
[2023-09-11 16:40] VITALS: BP 104/65; PULSE 88; RESP 20; TEMP 97.9
[2023-09-11] MEDS: HYDROmorphone HCL 2 MG/ML SYRINGE IVP ONE (17:44)
[2023-09-11] MEDS ORDERED: SODIUM CL IRRIG SOLN BOTTLE 250 ML IRRIG ONE (18:16)
[2023-09-11 20:42] VITALS: BP 108/59; PULSE 87; RESP 20; TEMP 98
[2023-09-11] MEDS: ACETAMINOPHEN 325 MG TABLET PO PRN (21:15)
[2023-09-12 04:20] VITALS: BP 112/75; PULSE 96; RESP 0; RESP 20; TEMP 98
[2023-09-12 07:08] LABS: BASOPHILS % (AUTO) 0.1 % (0.0-2.0); HEMATOCRIT 36.1 % (41-53); LYMPHOCYTES # (AUTO) 0.9 K/uL (1.0-4.8); LYMPHOCYTES % (AUTO) 13.4 % (22.0-44.0); MEAN CORPUSCULAR HEMOGLOBIN 30.2 pg (26.0-34.0); MEAN CORPUSCULAR HGB CONC 33.2 G/dL (31.0-37.0); MEAN CORPUSCULAR VOLUME 91 fL (80-100); MONOCYTES # (AUTO) 0.9 K/uL (0.1-1.0); NEUTROPHILS # (AUTO) 3.9 K/uL (1.8-7.7); NEUTROPHILS % (AUTO) 57.4 % (40.0-70.0); PLATELET COUNT (AUTO) 259 K/uL (150-450); RED BLOOD CELL COUNT(AUTO) 3.97 MIL/uL (4.50-5.90); WHITE BLOOD COUNT (AUTO) 6.7 K/uL (4.5-11.0)
[2023-09-12 07:23] LABS: ANION GAP 11 mmol/L (8-16); CALCIUM, TOTAL 8.5 mg/dL (8.8-10.5); CARBON DIOXIDE 26 mmol/L (22-29); CHLORIDE 102 mmol/L (98-107); CREATININE 0.69 mg/dL (0.60-1.30); GLOMERULAR FILTR. RATE CALC > 60 mL/min (>60); GLUCOSE,RANDOM 89 mg/dL (70-110); SODIUM SERUM 138 mmol/L (136-145); UREA NITROGEN, BLOOD 14 mg/dL (7-18)
[2023-09-12 07:48] VITALS: BP 107/65; PULSE 78; RESP 19; TEMP 97.7
[2023-09-12 08:17] LABS: EOSINOPHILS % (AUTO) 16.1 % (1.0-6.0)
[2023-09-12 08:18] LABS: RBC MORPHOLOGY COMMENT NORMAL RBC MORPH
[2023-09-12] MEDS ORDERED: SODIUM CHLORIDE 0.9% 500 ML IV ONE (10:45)
[2023-09-12 19:30] VITALS: BP 108/69; PULSE 86; RESP 18; TEMP 98.1
[2023-09-13 04:37] VITALS: BP 113/66; PULSE 81; RESP 18; TEMP 97.7
[2023-09-13 07:23] LABS: BASOPHILS % (AUTO) 0.1 % (0.0-2.0); HEMATOCRIT 36.1 % (41-53); LYMPHOCYTES # (AUTO) 1.1 K/uL (1.0-4.8); LYMPHOCYTES % (AUTO) 20.7 % (22.0-44.0); MEAN CORPUSCULAR HEMOGLOBIN 30.2 pg (26.0-34.0); MEAN CORPUSCULAR HGB CONC 33.1 G/dL (31.0-37.0); MEAN CORPUSCULAR VOLUME 91 fL (80-100); MONOCYTES # (AUTO) 0.9 K/uL (0.1-1.0); MONOCYTES % (AUTO) 18.2 % (2.0-9.0); NEUTROPHILS % (AUTO) 39.1 % (40.0-70.0); PLATELET COUNT (AUTO) 244 K/uL (150-450); RED BLOOD CELL COUNT(AUTO) 3.97 MIL/uL (4.50-5.90); RED CELL DISTRIBUTION WIDTH 15.4 % (11.5-14.5); WHITE BLOOD COUNT (AUTO) 5.1 K/uL (4.5-11.0)
[2023-09-13 07:25] LABS: EOSINOPHILS % (AUTO) 21.9 % (1.0-6.0)
[2023-09-13 07:27] LABS: ANION GAP 9 mmol/L (8-16); CALCIUM, TOTAL 8.5 mg/dL (8.8-10.5); CARBON DIOXIDE 27 mmol/L (22-29); CHLORIDE 100 mmol/L (98-107); CREATININE 0.71 mg/dL (0.60-1.30); GLOMERULAR FILTR. RATE CALC > 60 mL/min (>60); GLUCOSE,RANDOM 88 mg/dL (70-110); POTASSIUM 3.8 mmol/L (3.5-5.1); SODIUM SERUM 136 mmol/L (136-145); UREA NITROGEN, BLOOD 16 mg/dL (7-18)
[2023-09-13 07:54] VITALS: BP 107/65; PULSE 81; RESP 20; TEMP 98.4
[2023-09-13] MEDS ORDERED: CLIN-26 PO (13:34)
[2023-09-13] MEDS ORDERED: LACT1CAP70 PO (13:36)
[2023-09-13 15:32] VITALS: BP 103/66; PULSE 92; RESP 20; TEMP 98.2
== END 2023-09-13 18:52 | disposition home or self-care (01) | DRG 710 ==
LOC: EMS 02:03 → 6N 09:33
PROVIDERS: ADMIT Hospitalist; ATTEND Hospitalist
PROC: 0KBR0ZZ Excision of Left Upper Leg Muscle, Open Approach (ICD-10-PCS; principal; 2023-08-22 14:00)
DX: A41.9 Sepsis, unspecified organism (principal); E87.1 Hypo-osmolality and hyponatremia; L02.416 Cutaneous abscess of left lower limb; L03.116 Cellulitis of left lower limb; D50.9 Iron deficiency anemia, unspecified; F17.210 Nicotine dependence, cigarettes, uncomplicated; F19.10 Other psychoactive substance abuse, uncomplicated; Z91.199 Patient's noncompliance with other medical treatment and regimen due to unspecified reason; Z59.00 Homelessness unspecified; Z20.822 Contact with and (suspected) exposure to COVID-19
CPT/HCPCS: 10060; 71045; 73701; 80048; 80053; 80202; 80307; 81001; 83605; 84145; 85025; 85651; 86140; 87040; 87070; 87075; 87081; 87101; 87186; 87205; 88304; 93005; 97110; 97116; 97162; 97165; 97530; 97535; 99291; J0131; J0690; J0712; J1170; J1644; J1885; J2270; J2405; J2704; J3370; J3490; J7030; J7040; J7050; J7060; Q9967; 36415-L1; 36415-TC; Z7610

== ENCOUNTER 2023-09-17 13:36 | Emergency (ER) | payer MEDICAID ==
[~2023-09-17] VITALS: Ht 165.1 cm; Wt 60.0 kg
[~2023-09-17 13:36] MED LIST: CLIN-26 PO; KETO10TA2 PO; LACT1CAP70 PO
[2023-09-17 13:46] VITALS: BP 107/68; PULSE 110; RESP 14; TEMP 98.1
[2023-09-17 14:01] LABS: GLUCOMETER DEV NAME(LOC) ER.6; GLUCOSE,POINT OF CARE 105 MG/DL (70-110)
[2023-09-17] MEDS: BACITRACIN 28 GM OINTMENT TP ONE (15:16)
[2023-09-17] MEDS ORDERED: CEPH-558 PO (15:42)
[2023-09-17] MEDS ORDERED: BACI28.410 TP (15:42)
[2023-09-17] MEDS: IBUPROFEN 600 MG TABLET PO ONE (15:58)
== END 2023-09-17 16:11 | disposition home or self-care (01) ==
LOC: EMS 14:03
DX: S81.002A Unspecified open wound, left knee, initial encounter (principal); F15.90 Other stimulant use, unspecified, uncomplicated; X58.XXXA Exposure to other specified factors, initial encounter; Y93.89 Activity, other specified; Y92.89 Other specified places as the place of occurrence of the external cause; Y99.8 Other external cause status
CPT/HCPCS: 82962; 99283

== ENCOUNTER 2023-09-22 06:53 | Emergency (ER) | payer MEDICAID ==
[~2023-09-22] VITALS: Ht 165.1 cm; Wt 60.0 kg
[~2023-09-22 06:53] MED LIST changes: +BACI28.410 TP; +CEPH-558 PO
[2023-09-22 07:33] VITALS: BP 136/70; PULSE 81; RESP 16; TEMP 96.6
[2023-09-22] MEDS: BACITRACIN 28 GM OINTMENT TP ONE (08:05)
[2023-09-22 08:06] LABS: BASOPHILS % (AUTO) 0.1 % (0.0-2.0); EOSINOPHILS % (AUTO) 7.5 % (1.0-6.0); HEMATOCRIT 36.6 % (41-53); HEMOGLOBIN 12.3 g/dL (13.5-17.5); LYMPHOCYTES # (AUTO) 1.4 K/uL (1.0-4.8); LYMPHOCYTES % (AUTO) 23.4 % (22.0-44.0); MEAN CORPUSCULAR HEMOGLOBIN 30.1 pg (26.0-34.0); MEAN CORPUSCULAR HGB CONC 33.5 G/dL (31.0-37.0); MEAN CORPUSCULAR VOLUME 90 fL (80-100); MONOCYTES # (AUTO) 0.9 K/uL (0.1-1.0); MONOCYTES % (AUTO) 14.5 % (2.0-9.0); NEUTROPHILS # (AUTO) 3.3 K/uL (1.8-7.7); NEUTROPHILS % (AUTO) 54.5 % (40.0-70.0); PLATELET COUNT (AUTO) 438 K/uL (150-450); RED BLOOD CELL COUNT(AUTO) 4.07 MIL/uL (4.50-5.90); RED CELL DISTRIBUTION WIDTH 15.2 % (11.5-14.5); WHITE BLOOD COUNT (AUTO) 6.1 K/uL (4.5-11.0)
[2023-09-22 08:16] LABS: ANION GAP 10 mmol/L (8-16); CALCIUM, TOTAL 8.3 mg/dL (8.8-10.5); CARBON DIOXIDE 29 mmol/L (22-29); CHLORIDE 100 mmol/L (98-107); CREATININE 0.67 mg/dL (0.60-1.30); GLOMERULAR FILTR. RATE CALC > 60 mL/min (>60); GLUCOSE,RANDOM 91 mg/dL (70-110); POTASSIUM 3.7 mmol/L (3.5-5.1); SODIUM SERUM 139 mmol/L (136-145); UREA NITROGEN, BLOOD 8 mg/dL (7-18)
[2023-09-22 08:22] LABS: ALANINE AMINOTRANSFERASE 37 U/L (12-78); ALKALINE PHOSPHATASE 102 U/L (46-116); ASPARTATE AMINOTRANSFERASE 33 U/L (15-37); BILIRUBIN,TOTAL 0.4 mg/dL (0.1-1.0); TOTAL PROTEIN, SERUM 7.7 g/dL (6.4-8.2)
[2023-09-22 08:30] LABS: ALCOHOL, BLOOD (SERUM) < 3 mg/dL (0-10)
[2023-09-22] MEDS: IBUPROFEN 400 MG TABLET PO ONE (08:49)
== END 2023-09-22 09:39 | disposition home or self-care (01) ==
LOC: EMS 06:53
DX: S81.002A Unspecified open wound, left knee, initial encounter (principal); F17.210 Nicotine dependence, cigarettes, uncomplicated; F15.90 Other stimulant use, unspecified, uncomplicated; Z48.00 Encounter for change or removal of nonsurgical wound dressing; X58.XXXA Exposure to other specified factors, initial encounter; Y93.89 Activity, other specified; Y92.89 Other specified places as the place of occurrence of the external cause; Y99.8 Other external cause status
CPT/HCPCS: 99283; 80053; 85025; 36415; G0480

== ENCOUNTER 2023-09-26 07:06 | Emergency (ER) | payer MEDICAID ==
[~2023-09-26] VITALS: Ht 12.7 cm; Wt 60.0 kg
[2023-09-26 07:21] VITALS: TEMP 98.9
[2023-09-26 08:44] VITALS: BP 126/72; PULSE 90; RESP 16
== END 2023-09-26 10:46 | disposition home or self-care (01) ==
LOC: EMS 07:07
DX: S80.912A Unspecified superficial injury of left knee, initial encounter (principal); F17.210 Nicotine dependence, cigarettes, uncomplicated; F15.90 Other stimulant use, unspecified, uncomplicated; Z90.89 Acquired absence of other organs; X58.XXXA Exposure to other specified factors, initial encounter; Y93.89 Activity, other specified; Y92.89 Other specified places as the place of occurrence of the external cause; Y99.8 Other external cause status
CPT/HCPCS: 99281; Z7502

== ENCOUNTER 2023-10-03 11:04 | Emergency (ER) | payer MEDICAID ==
[~2023-10-03] VITALS: Ht 172.7 cm; Wt 63.6 kg
[~2023-10-03 11:04] MED LIST changes: -BACI28.410 TP; -CLIN-26 PO; -KETO10TA2 PO; -LACT1CAP70 PO
[2023-10-03 11:14] VITALS: TEMP 98.4
[2023-10-03] MEDS: ACETAMINOPHEN 500 MG TABLET PO ONE (11:46)
[2023-10-03] MEDS: BACITRACIN 28 GM OINTMENT TP ONE (12:03)
[2023-10-03 12:15] VITALS: BP 113/75; PULSE 87; RESP 18
== END 2023-10-03 14:16 | disposition home or self-care (01) ==
LOC: EMS 11:04
DX: S80.912D Unspecified superficial injury of left knee, subsequent encounter (principal); F17.210 Nicotine dependence, cigarettes, uncomplicated; F15.90 Other stimulant use, unspecified, uncomplicated; Z90.89 Acquired absence of other organs; X58.XXXD Exposure to other specified factors, subsequent encounter
CPT/HCPCS: 99283

== ENCOUNTER 2023-10-06 03:21 | Emergency (ER) | payer MEDICAID ==
[~2023-10-06] VITALS: Ht 165.1 cm; Wt 60.5 kg
[2023-10-06 03:48] VITALS: BP 116/73; PULSE 83; RESP 17; TEMP 98.9
== END 2023-10-06 04:29 | disposition home or self-care (01) ==
LOC: EMS 03:22
DX: S80.912D Unspecified superficial injury of left knee, subsequent encounter (principal); F17.210 Nicotine dependence, cigarettes, uncomplicated; F15.90 Other stimulant use, unspecified, uncomplicated; Z90.89 Acquired absence of other organs; X58.XXXD Exposure to other specified factors, subsequent encounter
CPT/HCPCS: 99281; 99285; Z7502

== ENCOUNTER 2023-10-15 20:51 | Emergency (ER) | payer MEDICAID ==
[~2023-10-15] VITALS: Ht 165.1 cm; Wt 60.0 kg
[2023-10-15 21:01] VITALS: TEMP 98.4
[2023-10-15] MEDS ORDERED: BACI28.410 TP (22:29)
[2023-10-15] MEDS: BACITRACIN 28 GM OINTMENT TP ONE (22:34)
[2023-10-15 22:35] VITALS: BP 122/62; PULSE 95; RESP 16
== END 2023-10-15 22:37 | disposition home or self-care (01) ==
LOC: EMS 20:53
DX: S81.002D Unspecified open wound, left knee, subsequent encounter (principal); F17.210 Nicotine dependence, cigarettes, uncomplicated; F15.90 Other stimulant use, unspecified, uncomplicated; X58.XXXD Exposure to other specified factors, subsequent encounter
CPT/HCPCS: 99282; Z7502; Z7610

== ENCOUNTER 2023-10-20 16:43 | Emergency (ER) | payer MEDICAID ==
[~2023-10-20] VITALS: Ht 165.1 cm; Wt 60.0 kg
[~2023-10-20 16:43] MED LIST changes: +BACI28.410 TP; -CEPH-558 PO
[2023-10-20 16:54] VITALS: BP 105/67; PULSE 116; RESP 14; TEMP 98
== END 2023-10-20 19:54 | disposition left against medical advice (07) ==
LOC: EMS 16:48
DX: T14.8XXD Other injury of unspecified body region, subsequent encounter (principal); Z53.21 Procedure and treatment not carried out due to patient leaving prior to being seen by health care provider; X58.XXXD Exposure to other specified factors, subsequent encounter

== ENCOUNTER 2023-10-25 21:04 | Emergency (ER) | payer MEDICAID ==
[~2023-10-25] VITALS: Ht 165.1 cm; Wt 60.0 kg
[2023-10-25] MEDS: BACITRACIN 28 GM OINTMENT TP ONE (22:36)
[2023-10-25 23:00] VITALS: BP 121/85; PULSE 74; RESP 16; TEMP 97.3
== END 2023-10-25 23:16 | disposition home or self-care (01) ==
LOC: EMS 21:05
DX: M25.562 Pain in left knee (principal); F17.210 Nicotine dependence, cigarettes, uncomplicated; F15.90 Other stimulant use, unspecified, uncomplicated; Z90.89 Acquired absence of other organs
CPT/HCPCS: 99282; Z7502; Z7610

== ENCOUNTER → 2023-10-29 | Emergency (ER) | payer MEDICAID ==
[~2023-10-29] VITALS: Ht 160 cm; Wt 63.6 kg
[2023-10-29 10:51] VITALS: BP 124/86; PULSE 96; RESP 18; TEMP 97.8
== END | disposition still patient (30) ==
LOC: EMS 10:39
DX: Z53.21 Procedure and treatment not carried out due to patient leaving prior to being seen by health care provider (principal)

== ENCOUNTER 2024-07-13 07:56 | Emergency (ER) | payer MEDICAID, OTHER ==
[~2024-07-13] VITALS: Ht 167.6 cm; Wt 81.8 kg
[2024-07-13 08:01] VITALS: TEMP 98
[2024-07-13] MEDS: KETOROLAC TROMETHAMINE 60 MG/2 ML VIAL IM ONE (10:09)
[2024-07-13] MEDS: OxyCODONE HCL/ACETAMINOPHEN 5-325 MG TABLET PO ONE (11:04)
[2024-07-13 11:16] VITALS: BP 124/85; PULSE 97; RESP 18; O2SAT 98
== END 2024-07-13 11:26 | disposition home or self-care (01) ==
LOC: EMS 08:00
DX: S92.321A Displaced fracture of second metatarsal bone, right foot, initial encounter for closed fracture (principal); S92.331A Displaced fracture of third metatarsal bone, right foot, initial encounter for closed fracture; F17.210 Nicotine dependence, cigarettes, uncomplicated; W60.XXXA Contact with nonvenomous plant thorns and spines and sharp leaves, initial encounter; Y93.89 Activity, other specified; Y92.89 Other specified places as the place of occurrence of the external cause; Y99.8 Other external cause status
CPT/HCPCS: 99283; 29515; 73630; 96372; J1885